=== PATIENT | male | born 1995 | race Caucasian/White ===

== ENCOUNTER 2016-10-16 15:59 | Emergency (ER) | payer MEDICAID ==
[~2016-10-16] VITALS: Ht 175.3 cm; Wt 89.0 kg
[2016-10-16 17:49] VITALS: BP 122/67
== END 2016-10-16 23:00 | disposition left against medical advice (07) ==
LOC: ER 22:53
DX: Z53.21 Procedure and treatment not carried out due to patient leaving prior to being seen by health care provider (principal)

== ENCOUNTER 2018-06-03 14:10 | Emergency (ER) | payer MEDICAID ==
[~2018-06-03] VITALS: Ht 172.7 cm; Wt 90.0 kg
[2018-06-03] MEDS ORDERED: KETOROLAC 60MG/2ML VIAL IM ONE (18:45)
[2018-06-03] MEDS ORDERED: CYCLOBENZAPRINE 10MG TABLET PO ONE (18:45)
[2018-06-03 20:38] VITALS: BP 124/81
== END 2018-06-03 20:42 | disposition home or self-care (01) ==
LOC: ER 14:10
DX: M54.5 Low back pain (principal); F12.10 Cannabis abuse, uncomplicated
CPT/HCPCS: 96372; 99283; J1885

== ENCOUNTER 2018-08-15 18:00 | Emergency (ER) | payer MEDICAID ==
[~2018-08-15] VITALS: Ht 172.7 cm; Wt 93.0 kg
[2018-08-15] MEDS ORDERED: SODIUM CHLORIDE 0.9% 1,000 ML IV ONE (20:00)
[2018-08-15] MEDS ORDERED: DIPHENHYDRAMINE 50MG/ML VIAL IV ONE (20:00)
[2018-08-15] MEDS ORDERED: KETOROLAC 30MG/ML VIAL IV ONE (20:00)
[2018-08-15] MEDS ORDERED: METOCLOPRAMIDE HCL 10MG/2ML VIAL IV ONE (20:00)
[2018-08-15 22:14] VITALS: BP 152/84
== END 2018-08-15 22:17 | disposition home or self-care (01) ==
LOC: ER 18:00
DX: R51 Headache (principal); R42 Dizziness and giddiness; F12.10 Cannabis abuse, uncomplicated; I10 Essential (primary) hypertension; Z98.890 Other specified postprocedural states
CPT/HCPCS: 96361; 96374; 96375; 99283; J1200; J1885; J2765; J7030; Z7610

== ENCOUNTER 2019-01-22 06:15 | Emergency (ER) | payer MEDICAID ==
[~2019-01-22] VITALS: Ht 175.3 cm; Wt 91.0 kg
[2019-01-22] MEDS ORDERED: KETOROLAC 60MG/2ML VIAL IM ONE (07:00)
[2019-01-22 07:22] VITALS: BP 138/77
== END 2019-01-22 07:21 | disposition home or self-care (01) ==
LOC: ER 06:15
DX: M54.30 Sciatica, unspecified side (principal); I10 Essential (primary) hypertension; Z98.890 Other specified postprocedural states
CPT/HCPCS: 96372; 99283; J1885

== ENCOUNTER 2019-06-14 11:20 | Emergency (ER) | payer MEDICAID ==
[~2019-06-14] VITALS: Ht 172.7 cm; Wt 91.0 kg
[2019-06-14] MEDS ORDERED: KETOROLAC 60MG/2ML VIAL IM ONE (15:30)
[2019-06-14] MEDS ORDERED: DEXAMETHASONE 4MG/ML 1ML VIAL IM ONE (15:30)
[2019-06-14] MEDS ORDERED: AMOXICILLIN/POTASSIUM CLAVULANATE 875/125MG TAB PO ONE (15:30)
[2019-06-14 16:08] VITALS: BP 138/86
== END 2019-06-14 16:11 | disposition home or self-care (01) ==
LOC: ER 11:35
DX: J02.0 Streptococcal pharyngitis (principal); I10 Essential (primary) hypertension; F12.10 Cannabis abuse, uncomplicated; Z98.890 Other specified postprocedural states
CPT/HCPCS: 87070; 87430; 96372; 99283; J1100; J1885

== ENCOUNTER 2019-10-27 08:34 | Emergency (ER) | payer MEDICAID ==
[~2019-10-27] VITALS: Ht 172.7 cm; Wt 91.0 kg
[2019-10-27] MEDS ORDERED: IBUPROFEN 600MG TABLET PO ONE (09:00)
[2019-10-27 10:30] VITALS: BP 131/68
== END 2019-10-27 10:35 | disposition home or self-care (01) ==
LOC: ER 08:34
DX: J03.90 Acute tonsillitis, unspecified (principal); R00.0 Tachycardia, unspecified; F12.10 Cannabis abuse, uncomplicated; I10 Essential (primary) hypertension; Z98.890 Other specified postprocedural states
CPT/HCPCS: 87070; 87430; 99283

== ENCOUNTER 2020-07-02 11:10 | Emergency (ER) | payer MEDICAID ==
[~2020-07-02] VITALS: Ht 165.1 cm; Wt 75.0 kg
[2020-07-02] MEDS ORDERED: PENICILLIN G BENZATHINE 1,200,000 UNITS/2ML SYR IM ONE (11:45)
[2020-07-02 12:15] VITALS: BP 134/90
== END 2020-07-02 12:16 | disposition home or self-care (01) ==
LOC: ER 11:10
DX: J03.90 Acute tonsillitis, unspecified (principal); I10 Essential (primary) hypertension; F12.90 Cannabis use, unspecified, uncomplicated
CPT/HCPCS: 96372; 99283; J0561